=== PATIENT | female | born 1990 | race Two or more races ===

== ENCOUNTER → 2025-05-09 | Outpatient (CLI) | payer MEDICAID, SELFPAY ==
--- NOTE | 2025-05-09 14:00 | XR_ITS ---
Examination: Transvaginal ultrasound of the pelvis, complete Technique: Transvaginal sonographic images pelvis performed using lomeli scale imaging Exam date and time: May 09, 2025, 1420 hours INDICATIONS: Pelvic pain beginning 9 years ago FINDINGS: Uterus 10.0 cm endometrial stripe 0.7 cm No uterine mass or intrauterine gestation Right ovary 2.4 cm arterial flow small follicles. Left ovary 3.0 cm arterial flow small follicles IMPRESSION: No uterine mass or intrauterine gestation
== END | disposition home or self-care (01) ==
LOC: CDIM 14:00
PROVIDERS: Referring Provider Obstetrics & Gynecology; Visit Provider Obstetrics & Gynecology
DX: R10.20 Pelvic and perineal pain unspecified side (principal)
CPT/HCPCS: 76830